=== PATIENT | male | born 1970 | race Caucasian/White ===

== ENCOUNTER 2022-08-01 21:35 | Inpatient (IN) | payer MEDICAID ==
[2022-08-01 22:13] LABS: BASOPHILS ABSOLUTE AUTO 0.04 K/mm3 (0.01-0.08); BASOPHILS PERCENT AUTO 0.5 % (0.1-1.2); EOSINOPHILS ABSOLUTE AUTO 0.16 K/mm3 (0.04-0.54); EOSINOPHILS PERCENT AUTO 1.9 (0.8-7.0); HEMATOCRIT 46.2 % (40.1-51.0); HEMOGLOBIN 15.6 gm/dl (13.7-17.5); IMMATURE GRAN ABSOLUTE AUTO 0.02 K/mm3 (0.00-0.10); IMMATURE GRAN PERCENT AUTO 0.2 % (<=1.0); LYMPHOCYTES ABSOLUTE AUTO 2.35 K/mm3 (1.32-3.57); LYMPHOCYTES PERCENT AUTO 27.8 % (21.8-53.1); MEAN CORPUSCULAR HEMOGLOBIN 31.8 pg (25.7-32.2); MEAN CORPUSCULAR HGB CONC 33.8 g/dl (32.2-35.5); MEAN CORPUSCULAR VOLUME 94.3 fl (79.0-92.2); MONOCYTES ABSOLUTE AUTO 0.69 K/mm3 (0.30-0.82); MONOCYTES PERCENT AUTO 8.2 % (5.3-12.2); NEUTROPHILS ABSOLUTE AUTO 5.19 K/mm3 (1.78-5.38); NEUTROPHILS PERCENT AUTO 61.4 % (34.0-67.9); PLATELET COUNT,PLT 255 K/mm3 (163-337); WHITE BLOOD CELL COUNT,WBC 8.45 K/mm3 (4.23-9.07)
[2022-08-01] MEDS ORDERED: Metoprolol Tartrate 5 MG in Sodium Chloride 0.9% 50 ML IV ONE ×4 (22:21→23:33)
[2022-08-01 22:45] LABS: A/G RATIO 1.1 (1-2); ALBUMIN 3.9 g/dl (3.4-5.0); ANION GAP 12.3 (5-15); BILIRUBIN TOTAL 0.3 mg/dL (0.2-1.0); CALCIUM 9.5 mg/dL (8.5-10.1); CREATININE 1.2 mg/dL (0.7-1.3); EST CRCL DRUG DOSING (CG) 63.35 mL/min; POTASSIUM,K 4.3 mEq/L (3.5-5.1); PROTEIN TOTAL,TP 7.6 g/dl (6.4-8.2)
[2022-08-01] MEDS ORDERED: Metoprolol Tartrate 5 MG/5 ML SDV IV ONE (22:45)
[2022-08-01 22:58] LABS: MAGNESIUM 2.2 mg/dL (1.8-2.4); TSH 3.239 uIU/mL (0.358-3.74)
[2022-08-01] MEDS ORDERED: Metoprolol Tartrate 5 MG/5 ML SDV IVPUSH ONE (23:35)
[2022-08-02] MEDS ORDERED: hydrALAZINE 20 MG/ML SDV IVPUSH ONE ×2 (00:27→03:04)
[2022-08-02] MEDS ORDERED: Sodium Chloride 0.9% 1,000 ML IV ONE (01:42)
[2022-08-02] MEDS ORDERED: Lisinopril 20 MG Tab PO ONE (03:06)
[2022-08-02] MEDS: Sodium Chloride 0.9% 1,000 ML IV SCH ×3 (03:18→19:26)
[2022-08-02 06:04] LABS: BASOPHILS ABSOLUTE AUTO 0.04 K/mm3 (0.01-0.08); BASOPHILS PERCENT AUTO 0.5 % (0.1-1.2); EOSINOPHILS ABSOLUTE AUTO 0.14 K/mm3 (0.04-0.54); EOSINOPHILS PERCENT AUTO 1.8 (0.8-7.0); HEMATOCRIT 46.7 % (40.1-51.0); HEMOGLOBIN 15.6 gm/dl (13.7-17.5); IMMATURE GRAN ABSOLUTE AUTO 0.02 K/mm3 (0.00-0.10); IMMATURE GRAN PERCENT AUTO 0.3 % (<=1.0); LYMPHOCYTES ABSOLUTE AUTO 1.79 K/mm3 (1.32-3.57); LYMPHOCYTES PERCENT AUTO 22.4 % (21.8-53.1); MEAN CORPUSCULAR HEMOGLOBIN 31.5 pg (25.7-32.2); MEAN CORPUSCULAR HGB CONC 33.4 g/dl (32.2-35.5); MEAN CORPUSCULAR VOLUME 94.2 fl (79.0-92.2); MEAN PLATELET VOLUME 9.3 fl (9.4-12.3); MONOCYTES ABSOLUTE AUTO 0.61 K/mm3 (0.30-0.82); MONOCYTES PERCENT AUTO 7.6 % (5.3-12.2); NEUTROPHILS ABSOLUTE AUTO 5.39 K/mm3 (1.78-5.38); NEUTROPHILS PERCENT AUTO 67.4 % (34.0-67.9); PLATELET COUNT,PLT 251 K/mm3 (163-337); RED BLOOD CELL COUNT 4.96 M/mm3 (4.63-6.08); WHITE BLOOD CELL COUNT,WBC 7.99 K/mm3 (4.23-9.07)
[2022-08-02 06:29] LABS: ALBUMIN 3.9 g/dl (3.4-5.0); ANION GAP 11.1 (5-15); BILIRUBIN TOTAL 0.5 mg/dL (0.2-1.0); BUN/CREATININE RATIO 16.7 (14-18); CALCIUM 9.3 mg/dL (8.5-10.1); CREATININE 0.9 mg/dL (0.7-1.3); EST CRCL DRUG DOSING (CG) 84.47 mL/min; POTASSIUM,K 4.1 mEq/L (3.5-5.1); PROTEIN TOTAL,TP 7.7 g/dl (6.4-8.2)
[2022-08-02 06:32] LABS: CHOLESTEROL HDL 58 mg/dL (40-59); CHOLESTEROL TOTAL 182 mg/dL (<200)
[2022-08-02 06:33] LABS: CHOLESTEROL LDL DIRECT 103 mg/dL (<100); TRIGLYCERIDES 52 mg/dL (<150)
[2022-08-02] MEDS ORDERED: Acetaminophen 325 MG Tab PO PRN (08:00)
[2022-08-02] MEDS ORDERED: Albuterol 6.7 GM Inhaler INH PRN (08:04)
[2022-08-02] MEDS ORDERED: Nicotine 14 MG/24 Hr Patch TRDERM SCH (09:00)
[2022-08-02] MEDS ORDERED: amLODIPine 5 MG Tab PO SCH (09:00)
[2022-08-02] MEDS: Formoterol/Mometasone 200-5 MCG 8.8 GM Inhaler IH SCH ×2 (10:11→20:19)
[2022-08-02] MEDS ORDERED: traZODone 50 MG Tab PO SCH (21:00)
[2022-08-03] MEDS: Sodium Chloride 0.9% 1,000 ML IV SCH (03:49)
[2022-08-03 06:04] LABS: BASOPHILS ABSOLUTE AUTO 0.04 K/mm3 (0.01-0.08); BASOPHILS PERCENT AUTO 0.5 % (0.1-1.2); EOSINOPHILS ABSOLUTE AUTO 0.16 K/mm3 (0.04-0.54); EOSINOPHILS PERCENT AUTO 2.2 (0.8-7.0); HEMATOCRIT 44.7 % (40.1-51.0); HEMOGLOBIN 14.8 gm/dl (13.7-17.5); IMMATURE GRAN ABSOLUTE AUTO 0.02 K/mm3 (0.00-0.10); IMMATURE GRAN PERCENT AUTO 0.3 % (<=1.0); LYMPHOCYTES ABSOLUTE AUTO 2.08 K/mm3 (1.32-3.57); LYMPHOCYTES PERCENT AUTO 28.4 % (21.8-53.1); MEAN CORPUSCULAR HEMOGLOBIN 31.9 pg (25.7-32.2); MEAN CORPUSCULAR HGB CONC 33.1 g/dl (32.2-35.5); MEAN CORPUSCULAR VOLUME 96.3 fl (79.0-92.2); MEAN PLATELET VOLUME 9.5 fl (9.4-12.3); MONOCYTES ABSOLUTE AUTO 0.37 K/mm3 (0.30-0.82); NEUTROPHILS ABSOLUTE AUTO 4.66 K/mm3 (1.78-5.38); NEUTROPHILS PERCENT AUTO 63.6 % (34.0-67.9); PLATELET COUNT,PLT 233 K/mm3 (163-337); RED BLOOD CELL COUNT 4.64 M/mm3 (4.63-6.08); WHITE BLOOD CELL COUNT,WBC 7.33 K/mm3 (4.23-9.07)
[2022-08-03 06:13] LABS: ALBUMIN 3.6 g/dl (3.4-5.0); ANION GAP 11.3 (5-15); BILIRUBIN TOTAL 0.4 mg/dL (0.2-1.0); BUN/CREATININE RATIO 11.7 (14-18); CALCIUM 8.6 mg/dL (8.5-10.1); CREATININE 1.2 mg/dL (0.7-1.3); EST CRCL DRUG DOSING (CG) 63.35 mL/min; POTASSIUM,K 4.3 mEq/L (3.5-5.1); PROTEIN TOTAL,TP 7.1 g/dl (6.4-8.2)
[2022-08-03] MEDS: Formoterol/Mometasone 200-5 MCG 8.8 GM Inhaler IH SCH (08:35)
== END 2022-08-03 07:45 | disposition home or self-care (01) | DRG 558 ==
LOC: JD.ED 21:35 → JD.OB 08-02 02:03
PROVIDERS: ADMIT Internal Medicine; ATTEND Internal Medicine
DX: M62.82 Rhabdomyolysis (principal); J45.909 Unspecified asthma, uncomplicated; I10 Essential (primary) hypertension; G89.29 Other chronic pain; M54.50 Low back pain, unspecified; F17.210 Nicotine dependence, cigarettes, uncomplicated; L97.521 Non-pressure chronic ulcer of other part of left foot limited to breakdown of skin; Z79.51 Long term (current) use of inhaled steroids; Z79.899 Other long term (current) drug therapy; Z98.890 Other specified postprocedural states
CPT/HCPCS: 36415; 71045; 71045-26; 80053; 80061; 82550; 82553; 83735; 84443; 84484; 85025; 85379; 93005; 93010; 94640; 94760; 96374; 96375; 96376; 99284-25; 99285; A9270-GY; J0360; J3490; J7030

== ENCOUNTER 2024-07-01 12:38 | Emergency (ER) | payer MEDICAID ==
[2024-07-01] MEDS: Sodium Chloride 0.9% 10 ML Syringe FLUSH PRN (13:31)
[2024-07-01] MEDS: Ketorolac 15 MG/ML SDV IVPUSH ONE (13:31)
[2024-07-01] MEDS: Sodium Chloride 0.9% 1,000 ML IV ONE (13:33)
[2024-07-01 13:36] LABS: BASOPHILS ABSOLUTE AUTO 0.1 K/mm3 (0.0-0.2); BASOPHILS PERCENT AUTO 0.4 % (0.0-1.0); EOSINOPHILS ABSOLUTE AUTO 0.1 K/mm3 (0.0-0.4); HEMOGLOBIN 15.4 gm/dl (14.0-18.0); IMMATURE GRAN ABSOLUTE AUTO 0.05 K/mm3 (0.00-0.05); IMMATURE GRAN PERCENT AUTO 0.4 % (0.0-0.4); LYMPHOCYTES ABSOLUTE AUTO 1.4 K/mm3 (1.0-4.8); LYMPHOCYTES PERCENT AUTO 11.2 % (24.0-44.0); MEAN CORPUSCULAR HEMOGLOBIN 31.6 pg (28.0-32.0); MEAN CORPUSCULAR HGB CONC 34.2 g/dl (32.0-36.0); MEAN CORPUSCULAR VOLUME 92.4 fl (83.0-99.0); MEAN PLATELET VOLUME 9.3 fl (9.4-12.4); MONOCYTES ABSOLUTE AUTO 0.6 K/mm3 (0.0-0.8); MONOCYTES PERCENT AUTO 5.3 % (0.0-8.0); NEUTROPHILS ABSOLUTE AUTO 9.8 K/mm3 (1.8-7.7); NEUTROPHILS PERCENT AUTO 81.7 % (41.0-71.0); PLATELET COUNT,PLT 222 K/mm3 (150-400); RED BLOOD CELL COUNT 4.87 M/mm3 (4.52-5.90); WHITE BLOOD CELL COUNT,WBC 12.02 K/mm3 (3.9-11.3)
[2024-07-01] MEDS: Sodium Chloride 0.9% 10 ML Syringe FLUSH ONE (13:44)
[2024-07-01] MEDS: Iopamidol 612 MG/ML 100 ML Bottle IVPUSH ONE (13:44)
[2024-07-01 13:54] LABS: A/G RATIO 1.2 (1-2); ALBUMIN 4.1 g/dl (3.4-5.0); ANION GAP 10.1 (5-15); BILIRUBIN TOTAL 0.7 mg/dL (0.2-1.0); BUN/CREATININE RATIO 15.4 (14-18); CALCIUM 9.2 mg/dL (8.5-10.1); CREATININE 1.3 mg/dL (0.7-1.3); EST CRCL DRUG DOSING (CG) 57.16 mL/min; POTASSIUM,K 4.1 mEq/L (3.5-5.1); PROTEIN TOTAL,TP 7.5 g/dl (6.4-8.2)
[2024-07-01 15:33] LABS: APPEARANCE,URINE CLEAR (Clear); BILIRUBIN,URINE NEGATIVE (Negative); COLOR,URINE YELLOW (Yellow); GLUCOSE,URINE NEGATIVE (Negative); KETONES,URINE 1+ (Negative); LEUKOCYTE ESTERASE,URINE NEGATIVE (Negative); NITRITE,URINE NEGATIVE (Negative); OCCULT BLOOD,URINE NEGATIVE (Negative); PROTEIN,URINE NEGATIVE (Negative)
[2024-07-01 15:46] LABS: BACTERIA,URINE FEW /hpf (FEW); EPITHELIAL CELLS,URINE 0-5 /hpf (0-5); MUCUS,URINE NOT SEEN /hpf (FEW); RBC,URINE 0-5 /hpf (0-5); WBC,URINE 0-5 /hpf (0-5)
== END 2024-07-01 16:05 | disposition home or self-care (01) ==
LOC: JD.ED 12:38
DX: R10.9 Unspecified abdominal pain (principal); I10 Essential (primary) hypertension; J45.909 Unspecified asthma, uncomplicated; F17.210 Nicotine dependence, cigarettes, uncomplicated; Z79.899 Other long term (current) drug therapy
CPT/HCPCS: 36415; 74177; 80053; 81001; 83690; 85025; 93005; 96361; 96374; 99284; J1885; J7030; Q9967; 93010

== ENCOUNTER 2025-01-18 12:59 | Emergency (ER) | payer MEDICAID ==
[2025-01-18] MEDS: Fluorescein 1 MG Ophth Strip EYEBOTH ONE (13:16)
== END 2025-01-18 13:35 | disposition home or self-care (01) ==
LOC: JD.ED 12:59
DX: S05.01XA Injury of conjunctiva and corneal abrasion without foreign body, right eye, initial encounter (principal); S05.02XA Injury of conjunctiva and corneal abrasion without foreign body, left eye, initial encounter; I10 Essential (primary) hypertension; X58.XXXA Exposure to other specified factors, initial encounter; Z79.899 Other long term (current) drug therapy; Y93.89 Activity, other specified
CPT/HCPCS: 65220; 99283; A9270; 99284; J3490